=== PATIENT | female | born 1950 | race Caucasian/White ===

== ENCOUNTER 2016-09-16 17:13 | Emergency (ER) | payer OTHER ==
[~2016-09-16] VITALS: Ht 156.2 cm; Wt 81.4 kg
[~2016-09-16 17:13] MED LIST: AMIT10TA6 PO; DULO60CA61 PO; PRAZ1CAP2 PO; TRAZ-115 PO
[2016-09-16 17:19] VITALS: BP 150/84; PULSE 110; RESP 16; O2SAT 94
[2016-09-16 17:59] LABS: BASOPHILS % (AUTO) 0.7 % (0-3); EOSINOPHILS % (AUTO) 3.7 % (0-5); MONOCYTES % (AUTO) 7.6 % (4-12); Mean Corpuscular Hemoglobin 33.4 pg (27.0-35.0); Mean Corpuscular Volume 102.6 fL (81-100); Platelet Count 337 bil/L (150-400)
--- NOTE | 2016-09-16 18:08 | ED.REPORT ---
HPI-General Illness Date of Service Sep 16, 2016 ED Provider: Mynor Aguilar DO Patient is a 65 year old female with a history of diabetes and arthritis in her neck and shoulder who presents to the ED complaining of an intention tremor in her right arm worsening this morning. She notes it is most prominent in the right arm is also present in the left arm and in the lower extremities and more prominent with active movement. She first noticed the symptoms up to 6 months ago that were mild and slowly and progressively worsening. Associated symptoms include chronic arm and shoulder pain. The patient denies headache, numbness, or weakness. Patient states that the episodes last about an hour and are exacerbated by movement. She reports that her arm has gotten progressively worse as the day went on and had been ongoing for the past few months. Nursing Notes Stated Complaint: UNCONTROLLABLE SHAKING & PAIN Chief Complaint: Head, Face, Neck Trauma Nursing Notes Reviewed: Yes Allergies: Coded Allergies: Penicillins (Verified Allergy, Unknown, 09/16/16) amphetamine (Verified Allergy, Unknown, 09/16/16) dextroamphetamine (Verified Allergy, Unknown, 09/16/16) Scheduled Amitriptyline (Amitriptyline) 10 Mg Tablet 10 MG PO HS Duloxetine (Duloxetine) 60 Mg Capsule.dr 60 MG PO DAILY Lorazepam (Ativan) 1 Mg Tablet 1 MG PO BID Prazosin (Prazosin) 1 Mg Capsule 2 MG PO HS Trazodone (Trazodone) 50 Mg Tablet 100 MG PO HS General Time Seen by MD: 18:04 Chief Complaint Other (tremor in her right arm) Hx Obtained From: Patient Arrived By: Walk-in Sudden in Onset?: No Onset Occurred: More than a week ago... (3 months) Symptom Duration: Intermittent Location: : Arm right Recent Healthcare: No recent hospitalization, Recent doctor visit Past Medical History Past Medical History Dysphagia Hyperlipidemia Reports: Diabetes mellitus, Hypertension Reports: Depression Past Surgical History Colon resection ho perirectal abscess fistula Reports: , Cholecystectomy, Hysterectomy, Tonsillectomy Smoking History Never Smoker Social History Alcohol Use: Denies alcohol use Drug Use: Denies drug use Other Social History: Good social support Ambulatory Status Independent Review of Systems Full Review of Systems Respiratory: Denies: Non-productive cough, Shortness of breath Musculoskeletal: Reports: Extremity pain (right arm and shoulder) Neurologic: Reports: Shaking, Denies: Headache, Numbness, Weakness Complete sys rev & neg: except as marked. Physical Exam Vital Signs Vital Signs Date Time Temp Pulse Resp B/P Pulse Ox O2 Delivery O2 Flow Rate FiO2 09/16/16 19:31 36.9 94 18 148/73 95 Room Air 09/16/16 19:04 94 18 148/73 95 Room Air 09/16/16 17:19 36.9 110 16 150/84 94 Room Air Initial VS: Reviewed General/Constitutional: Awake, Alert, No acute distress Head / Eyes: Atraumatic, Normocephalic, PERRL, EOMI ENT: Atraumatic, Airway patent, Mucous membranes moist Neck: Supple, Full range of motion Respiratory / Chest: Atraumatic, Breath sounds NL, Breath sounds = bilat, No respiratory distress Cardiovascular: Heart rate NL, Regular rhythm, Heart sounds NL Abdomen: Atraumatic, Soft, Non-tender Back: Atraumatic, Full range of motion Skin: Atraumatic, Color NL, No rash, Warm, Dry Neurologic: Oriented X3, Speech NL, No motor deficits, No sensory deficits, CN II - XII intact +2 reflexes intention tremor prominent in all four extremities Psychiatric: Affect NL, Mood NL Interpretation & Diagnostics Lab Results Interpretation Result Diagram: 09/16/16 1751 09/16/16 1751 Test 09/16/16 17:51 White Blood Count 9.0th/mm3 (3.8-10.1) Red Blood Count 4.19mil/mm3 (3.90-5.20) Hemoglobin 14.0g/dL (12.0-15.6) Hematocrit 43.0% (35.0-46.0) Mean Corpuscular Volume 102.6fL (81-100) Mean Corpuscular Hemoglobin 33.4pg (27.0-35.0) Mean Corpuscular Hemoglobin Concent 32.6% (32.0-37.0) Red Cell Distribution Width 13.6% (12.3-15.4) Platelet Count 337bil/L (150-400) Neutrophils (%) (Auto) 65.0% (40-74) Lymphocytes (%) (Auto) 22.7% (14-46) Monocytes (%) (Auto) 7.6% (4-12) Eosinophils (%) (Auto) 3.7% (0-5) Basophils (%) (Auto) 0.7% (0-3) Sodium Level 140mEq/L (134-144) Potassium Level 4.2mEq/L (3.5-5.2) Chloride Level 101mEq/L (97-108) Carbon Dioxide Level 23mmol/L (18-29) Blood Urea Nitrogen 14mg/dL (8-27) Creatinine 0.72mg/dL (0.57-1.00) Estimat Glomerular Filtration Rate 117mL/min (>59) Glucose Level 99mg/dL (60-99) Calcium Level 9.2mg/dL (8.5-10.1) Magnesium Level 2.4mg/dL (1.6-2.6) Total Bilirubin 0.7mg/dL (0.0-1.2) Aspartate Amino Transf (AST/SGOT) 49U/L (0-50) Alanine Aminotransferase (ALT/SGPT) 54U/L (0-32) Alkaline Phosphatase 107U/L (25-165) Total Protein 7.9g/dL (6.4-8.4) Albumin 5.1g/dL (3.4-5.0) Hold Andres Top Tube Received (Received) ECG Interpretation ECG Interpretation: no change from 12/02/15 Time: 18:40 Interpreted by: ED physician Normal ECG Interpretation: Normal rate (93), Normal sinus rhythm CT Head Interpretation IMPRESSION: No acute intracranial abnormality. Dictated by: Fela Kunz M.D. on 09/16/2016 at 19:08 Approved by: Fela Kunz M.D. 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 Labs and CT are unremarkable for tumor or mass effect are cranial hemorrhage or other pathology. She does not have focal neurologic deficits in any way to suggest a central spinal cord lesion, her symptoms are simply presents as a tremor which is active with movement and resolves at rest. She is prescribed a few days of lorazepam and encouraged to follow-up closely with her primary care and neurology. Source of Hx: Old records Time of Eval: 19:17 Patient Status: Condition resolved Re-Evaluation/Progress Note: The patient's tremor has resolved after Ativan. Discharge & Departure Primary Impression: Intention tremor Disposition: Home Discharge Condition All VS Reviewed: Yes Condition: Stable Additional Instructions: Use Ativan as needed for tremor. Call your PCP in the morning for Neurology follow up. Return to the ED as needed if worse. Referrals: Shanthi Maurer MD (PCP) Elly Attestation Portions of this note were transcribed by Shanna Sesay. I, Dr. Aguilar personally performed the history, physical exam and medical decision-making; I reviewed and confirmed the accuracy of the information in the transcribed note. Signed by: Elly Galaviz, 09/16/16 and 1914. copies to: Shanthi Maurer MD, Timothy S DO Sep 16, 2016 18:08 Kamryn Sesay Sep 16, 2016 18:23
[2016-09-16 18:19] LABS: Magnesium 2.4 mg/dL (1.6-2.6)
[2016-09-16] MEDS ORDERED: LORazepam 1 mg Tablet PO ONE (18:20)
[2016-09-16 19:04] VITALS: BP 148/73; PULSE 94; RESP 18; O2SAT 95
--- NOTE | 2016-09-16 19:10 | DRSVH ---
PROCEDURE: CT BRAIN WITHOUT CONTRAST ([id number]) INDICATIONS: tremor, headache TECHNIQUE: Noncontrast 4.5 mm thick angled axial sections acquired from the foramen magnum to the vertex, with c oronal reformats. COMPARISON: [facility], MR, MR BRAIN WO CON, 02/09/2015, 12:26. [facility], CT, CT BRAIN WO CON, 02/01/2015, 20:02. FINDINGS: Image quality: Excellent. CSF spaces: Basal cisterns are patent. No extra-axial fluid collections. The ventricles are symmet francesco in size and shape. Brain: No intracranial bleeds or masses. There is cerebral volume loss for age, with resultant vent ricular and sulcal prominence. There are periventricular and deep white matter chronic small vessel ischemic changes. There is intracranial internal carotid artery atherosclerosis. Skull and face: Calvarium and visualized facial bones appear intact, without suspicious lesions. Sinuses: Visualized sinuses and mastoids are clear. IMPRESSION: No acute intracranial abnormality. Dictated by: Fela Kunz M.D. on 09/16/2016 at 19:08 Approved by: Fela Kunz M.D. on 09/16/2016 at 19:09
[2016-09-16] MEDS ORDERED: LORA-303 PO (19:21)
[2016-09-16 19:31] VITALS: BP 148/73; PULSE 94; RESP 18; O2SAT 95
== END 2016-09-16 19:33 | disposition home or self-care (01) ==
LOC: SED 17:13
DX: G25.2 Other specified forms of tremor (principal); E78.5 Hyperlipidemia, unspecified; E11.9 Type 2 diabetes mellitus without complications; I10 Essential (primary) hypertension; Z90.49 Acquired absence of other specified parts of digestive tract; Z88.0 Allergy status to penicillin; Z88.8 Allergy status to other drugs, medicaments and biological substances